=== PATIENT | female | born 1975 | race Caucasian/White ===

== ENCOUNTER → 2016-10-19 | Outpatient (REF) | payer OTHER ==
[~2016-10-19] MED LIST: FLOVENT INH; MOTR200T44 PO; NORCOTAB PO; VARE05TA PO; albuterol inhaler INH; ibuprofen OR
[2016-10-19 13:29] LABS: ALBUMIN 3.8 GM/DL (3.2-5.2); ALBUMIN/GLOBULIN RATIO 1.06 (1.00-1.93); ALKALINE PHOSPHATASE 108 U/L (45-117); ALT/SGPT 24 U/L (12-78); ANION GAP 8 MEQ/L (8-16); AST/SGOT 18 U/L (15-37); BILIRUBIN,TOTAL 0.4 MG/DL (0.2-1.0); BLOOD UREA NITROGEN 10 MG/DL (7-18); CALCIUM LEVEL 8.8 MG/DL (8.5-10.1); CARBON DIOXIDE LEVEL 28 MEQ/L (21-32); CHLORIDE LEVEL 108 MEQ/L (98-107); CHOLESTEROL LEVEL 190 MG/DL (<200); CREATININE FOR GFR 0.66 MG/DL (0.55-1.02); GLOMERULAR FILTRATION RATE > 60.0 (>58); GLUCOSE, FASTING 77 MG/DL (70-105); POTASSIUM SERUM 4.2 MEQ/L (3.5-5.1); SODIUM LEVEL 144 MEQ/L (136-145); TOTAL PROTEIN 7.4 GM/DL (6.4-8.2); TRIGLYCERIDES LEVEL 198 MG/DL (<150)
[2016-10-19 13:46] LABS: MEAN CORPUSCULAR HEMOGLOBIN 30.4 pg (27.0-33.0); MEAN CORPUSCULAR VOLUME 89.4 fl (80.0-96.0); RED CELL DISTRIBUTION WIDTH 13.6 % (11.5-14.5); WHITE BLOOD COUNT 5.4 K/mm3 (4.0-10.0)
== END ==
LOC: M SFHCPLAZ 09:01
PROVIDERS: ATTEND Nurse Practitioner Family
DX: M54.5 Low back pain (principal); E66.9 Obesity, unspecified

== ENCOUNTER → 2017-01-19 | Outpatient (REF) | payer OTHER ==
[2017-01-19 12:34] LABS: FREE T4 0.98 NG/DL (0.76-1.46)
== END ==
LOC: M SFHCPLAZ 08:55
PROVIDERS: ATTEND Nurse Practitioner Family
DX: F32.9 Major depressive disorder, single episode, unspecified (principal); E55.9 Vitamin D deficiency, unspecified

== ENCOUNTER → 2017-03-08 | Outpatient (CLI) | payer OTHER ==
--- NOTE | 2017-03-09 02:16 | REP ---
Clinical: Temporomandibular joint pain. Technique: AP, bilateral oblique and Thomas views of the mandible. Findings: The mandible is intact. Oblique views demonstrate normal positioning to the mandibular condyle within the temporomandibular joint bilaterally. Surrounding soft tissues are unremarkable. Impression: Normal mandibular radiograph series. Consider open and closed mouth views of the temporomandibular joints and/or MRI if pain persists. Signed by Bernard Marcus MD 03/09/2017 02:08 A
== END ==
LOC: M SMT 12:55
PROVIDERS: ATTEND Nurse Practitioner Family
DX: M26.609 Unspecified temporomandibular joint disorder, unspecified side (principal)

== ENCOUNTER → 2017-03-13 | Outpatient (CLI) | payer OTHER ==
--- NOTE | 2017-03-13 10:22 | REP ---
Bilateral temporomandibular joint series: six views. Comparison mandible series is from March 08, 2017. History: Temporomandibular joint pain symptoms. Findings: Six views of the temporomandibular joints demonstrate normal opening translation range of motion. Temporal fossa and mandibular condyles appear intact. No mandibular lesion is seen. There is an unerupted wisdom to the in the right maxilla. Impression: Negative temporomandibular joint views. There is a unerupted wisdom tooth in the maxilla on the right at the base of the maxillary sinus. Signed by Teo Jackson MD 03/13/2017 10:14 A
== END ==
LOC: M SMT 09:22
PROVIDERS: ATTEND Nurse Practitioner Family
DX: M26.609 Unspecified temporomandibular joint disorder, unspecified side (principal)